=== PATIENT | male | born 1975 | race Caucasian/White ===

== ENCOUNTER 2019-10-16 09:01 | Emergency (ER) | payer OTHER ==
[~2019-10-16] VITALS: Ht 175.3 cm; Wt 79.4 kg
[2019-10-16 09:12] VITALS: BP 140/89
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
[2019-10-16] MEDS ORDERED: IBUPROFEN 400 MG TABLET. PO ONE (09:30)
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
[2019-10-16] MEDS ORDERED: IBUP-1007 PO (09:59)
== END 2019-10-16 10:04 | disposition home or self-care (01) ==
LOC: ER 09:01
DX: S90.112A Contusion of left great toe without damage to nail, initial encounter (principal); Z98.890 Other specified postprocedural states; W23.0XXA Caught, crushed, jammed, or pinched between moving objects, initial encounter; Y93.89 Activity, other specified; Y92.89 Other specified places as the place of occurrence of the external cause; Y99.8 Other external cause status
CPT/HCPCS: 73630; 99284